=== PATIENT | female | born 1965 | race Caucasian/White ===

== ENCOUNTER 2016-12-30 11:26 | Outpatient (CLI) | payer OTHER | END 2016-12-30 11:27 | LOC: CARD 11:26 | PROVIDERS: ATTEND Internal Medicine Cardiovascular Disease | DX: I12.9 Hypertensive chronic kidney disease with stage 1 through stage 4 chronic kidney disease, or unspecified chronic kidney disease (principal); E11.22 Type 2 diabetes mellitus with diabetic chronic kidney disease; N18.9 Chronic kidney disease, unspecified; E78.2 Mixed hyperlipidemia | CPT/HCPCS: 99214 ==

== ENCOUNTER 2017-06-30 13:33 | Outpatient (CLI) | payer MEDICARE, OTHER | END 2017-06-30 13:35 | LOC: CARD 13:33 | PROVIDERS: ATTEND Internal Medicine Cardiovascular Disease | DX: I13.2 Hypertensive heart and chronic kidney disease with heart failure and with stage 5 chronic kidney disease, or end stage renal disease (principal); E11.22 Type 2 diabetes mellitus with diabetic chronic kidney disease; N18.5 Chronic kidney disease, stage 5; E78.5 Hyperlipidemia, unspecified; E66.9 Obesity, unspecified | CPT/HCPCS: G0463 ==

== ENCOUNTER 2018-04-13 11:22 | Outpatient (CLI) | payer MEDICARE, OTHER | END 2018-04-13 11:27 | LOC: CARD 11:22 | PROVIDERS: ATTEND Internal Medicine Cardiovascular Disease | DX: E11.9 Type 2 diabetes mellitus without complications (principal); I10 Essential (primary) hypertension; E78.5 Hyperlipidemia, unspecified; N18.5 Chronic kidney disease, stage 5; Z86.79 Personal history of other diseases of the circulatory system | CPT/HCPCS: G0463 ==

== ENCOUNTER 2019-01-18 10:34 | Outpatient (CLI) | payer MEDICARE, OTHER ==
[2019-01-18 12:26] LABS: eGFR (Non-African) 5
[2019-01-18 12:48] LABS: EOSINOPHILS % 2 % (0-7); HYPOCHROMASIA 2+ (NEGATIVE); MONOCYTES % 3 % (0-11); OVALOCYTES 1+ (NEGATIVE); SEGMENTED NEUTROPHILS % 86 % (39-79)
== END 2019-01-18 10:36 ==
LOC: LAB 10:34
PROVIDERS: ATTEND Family Medicine
DX: N18.9 Chronic kidney disease, unspecified (principal); D63.1 Anemia in chronic kidney disease; R39.198 Other difficulties with micturition
CPT/HCPCS: 80053; 85025; 87086; 87400

== ENCOUNTER 2019-03-01 20:53 | Observation (INO) | payer MEDICARE, OTHER ==
[2019-03-01] MEDS ORDERED: 0.9 % SODIUM CHLORIDE 250 ML IV.SOLN IV ONE (20:54)
[2019-03-01] MEDS ORDERED: cefTRIAXone SODIUM 1 GM INJ ONE (20:54)
[2019-03-01] MEDS ORDERED: ONDANSETRON HCL/PF 4 MG/ 2ML VIAL ONE (20:54)
[2019-03-01] MEDS ORDERED: fentaNYL CITRATE/PF 100 MCG/2 ML INJ. ONE (20:54)
[2019-03-01] MEDS ORDERED: NORMAL SALINE 1,000 ML IV.SOLN IV ONE (23:35)
[2019-03-02] MEDS ORDERED: PROMETHAZINE HCL 12.5 MG SUPP.RECT RC ONE (00:02)
[2019-03-02] MEDS ORDERED: oxyCODONE HCL 5 MG TABLET ONE ×2 (00:46→07:21)
[2019-03-02] MEDS ORDERED: PANTOPRAZOLE SODIUM 40 MG TABLET.DR ONE (06:31)
[2019-03-02] MEDS ORDERED: LEVOTHYROXINE SODIUM 50 MCG TABLET ONE (06:31)
[2019-03-02] MEDS ORDERED: AMIODARONE HCL 200 MG TABLET PO ONE (08:03)
[2019-03-02] MEDS ORDERED: ASPIRIN 81 MG CHEW TAB ONE (08:04)
[2019-03-02] MEDS ORDERED: ONDANSETRON HCL/PF 4 MG/ 2ML VIAL ONE (08:56)
[2019-03-21 13:57] LABS: eGFR (Non-African) 9
[2019-03-21 13:58] LABS: BASOPHILS % 0.5 % (0.0-1.5); NEUTROPHILS # 7.6 # k/uL (1.4-7.7)
[2019-03-22 07:50] LABS: eGFR (Non-African) 10
[2019-03-22 07:51] LABS: BASOPHILS % 0.5 % (0.0-1.5); NEUTROPHILS # 6.7 # k/uL (1.4-7.7)
== END 2019-03-02 09:45 ==
LOC: ED 20:53 → UNDOADMOB 22:12 → SOUTH 22:12 → UNDOADMOB 22:50 → UNDODISOB 03-02 09:45
PROVIDERS: ADMIT Physician Assistant Medical; ATTEND Physician Assistant Medical
DX: N39.0 Urinary tract infection, site not specified (principal); E87.1 Hypo-osmolality and hyponatremia
CPT/HCPCS: 80053; 85025; 87040; 87086; 99234; G0378; J0696; J2405; J3010; J7030; J7050; S1016

== ENCOUNTER 2019-03-03 06:00 | Outpatient (CLI) | payer MEDICARE, OTHER ==
[2019-03-21 17:10] LABS: eGFR (Non-African) 10
== END 2019-03-03 06:05 | disposition home or self-care (01) ==
LOC: LAB 06:00
PROVIDERS: ATTEND Family Medicine
DX: I50.9 Heart failure, unspecified (principal); I73.9 Peripheral vascular disease, unspecified; R88.0 Cloudy (hemodialysis) (peritoneal) dialysis effluent
CPT/HCPCS: 36415; 80048